=== PATIENT | female | born 1940 | race Caucasian/White ===

== ENCOUNTER 2017-04-27 14:04 | Emergency (ER) | payer MEDICARE, BC ==
[2017-04-27 14:33] LABS: #Basophils 0.1 thou/uL (0.0-0.2); #Eosinphils 0.1 thou/uL (0.0-0.7); #Lymphocytes 1.6 thou/uL (1.20-3.40); #Monocytes 0.9 thou/uL (0.11-0.59); %Basophils 1.4 % (0.0-1.0); %Eosinophils 0.9 % (0.0-10.0); %Monocytes 11.3 % (0.0-10.0); %Neutrophils 65.5 % (42.0-75.0); Hemoglobin 14.6 g/dL (12.0-16.0); Mean Corpuscular HGB CONC 33.8 g/dL (32.0-36.0); Mean Corpuscular Hemoglobin 31.6 pg (27.0-31.0); Mean Corpuscular Volume 93.5 fl (81.0-99.0); Mean Platelet Volume 6.6 fL (7.4-10.4); Platelet Count 367 thou/uL (130-400); RBC Distribution Width 12.7 % (11.5-14.5); Red Blood Cell (RBC) Count 4.63 mill/uL (4.20-5.40); White Blood Cell (WBC) Count 7.6 thou/uL (4.8-10.8)
[2017-04-27 14:52] LABS: ALT (SGPT) 17 U/L (8-55); AST (SGOT) 25 U/L (5-34); Albumin 4.2 g/dL (3.4-4.8); Alkaline Phosphatase 83 U/L (40-150); Anion Gap 14 mmol/L (10-20); BUN (Urea Nitrogen) 8 mg/dL (9.8-20.1); Bilirubin, Total 0.4 mg/dL (0.2-1.2); Calc. Creatinine Clearance 0 mL/min (70-130); Calcium 9.7 mg/dL (7.8-10.44); Carbon Dioxide 24 mmol/L (23-31); Chloride 103 mmol/L (98-107); Estimated GFR-MDRD 77; Globulin 3.3 g/dL (2.4-3.5); Glucose 101 mg/dL (83-110); Potassium 4.2 mmol/L (3.5-5.1); Protein, Total 7.5 g/dL (6.0-8.3); Sodium 137 mmol/L (136-145)
[2017-04-27 15:02] LABS: Bilirubin Negative (Negative); Blood, Urine Negative (Negative); Clarity Clear (Clear); Glucose, Urine (Dipstick) Negative (Negative); Leukocyte Negative (Negative); Nitrite Negative (Negative); Protein, Urine (Dipstick) Negative (Neg-Trace); Specific Gravity, Urine 1.015 (1.005-1.030); Urobilinogen 0.2 mg/dL (0.2-1.0); pH, Urine 7.5 (5.0-9.0)
--- NOTE | 2017-04-27 16:09 | CT ---
CT ABDOMEN AND PELVIS WITH CONTRAST 04/27/[address] of the abdomen and pelvis was performed for evaluation of a palpable right inguinal mass. Axial slices were acquired, then coronal and sagittal reconstructions were done. A 3.5 cm mass is seen in the right inguinal region. There are some inflammatory changes in the fat i mmediately around it and the mass itself appears to have some enhancement with contrast. There does not appear to be any connection to bowel to think that this is a hernia. The most likely considerati on would be a markedly enlarged lymph node. Neoplasia of other etiology is theoretically possible. I t would be interesting to know if there are any infections or lesions in the patient's right lower e xtremity. Aside from this, there are no other surrounding abnormalities. The lung bases are clear. the liver, spleen and pancreas are normal in size. There is a 1.4 cm cysti c area in the right lobe of the liver that is probably just a simple cyst. The adrenal glands and ki dneys showed no solid mass or other acute change. There is no hydronephrosis. No stones were seen in the gallbladder. The aorta shows a few calcifications in it but no aneurysm. The bowel shows no evidence of obstruction or dilation. There are no inflammatory changes around bow el. No free air or free fluid was present. CT of the pelvis showed no pelvic masses, free fluid or internal inflammatory changes. There are ext ensive degenerative changes in the patient's lumbar spine which are quite severe in some areas. Ther e is a newly grade II spondylolisthesis of L4 on L5 due to facet arthritis. This has been seen previ ously on MRI. IMPRESSION: 1. 3.5 cm enhancing mass in the right inguinal region that does not appear to be a hernia. Give n a little bit of inflammatory change around it, an enlarged lymph node seems most likely, but it ob viously should be followed up to resolution to be sure that it is not anything other than that. 2. Presumed hepatic cyst. 3. Severe degenerative changes with spondylolisthesis involving the lumbar spine. POS: HOME
== END 2017-04-27 16:00 | disposition home or self-care (01) ==
LOC: BURERS 14:04
DX: L04.1 Acute lymphadenitis of trunk (principal); Z79.899 Other long term (current) drug therapy
CPT/HCPCS: 74177; 80053; 81003; 83605; 85025; 96374